=== PATIENT | female | born 1995 | race Caucasian/White ===

== ENCOUNTER 2021-04-16 06:00 | Inpatient (IN) | payer BC, OTHER ==
[2021-04-16] MEDS ORDERED: OXYTOCIN 10 UNIT/ML 1 ML VIAL IM PRN (06:25)
[2021-04-16] MEDS ORDERED: TERBUTALINE 1 MG/ML VIAL SQ PRN (06:25)
[2021-04-16] MEDS ORDERED: METHYLERGONOVINE 0.2 MG/ML 1 ML AMP IM PRN (06:25)
[2021-04-16] MEDS ORDERED: CARBOPROST TROMETHAMINE 250 MCG/ML 1 ML AMP IM PRN (06:25)
[2021-04-16] MEDS ORDERED: LIDOCAINE 0.5% (PF) 5 MG/ML (50 ML SDV) SQ PRN (06:25)
[2021-04-16] MEDS ORDERED: OXYTOCIN 30 UNITS/500 ML NS 30 UNIT in SALINE 1 500ML.BAG IV SCH ×2 (06:30→20:00)
[2021-04-16] MEDS: LACTATED RINGERS 1,000 ML IV SCH ×2 (06:50→13:09)
[2021-04-16 07:15] LABS: Basophils % (A) 0 %; Eosinophils # (A) 0.1 k/uL (0-0.7); Eosinophils % (A) 1 %; HCT 34.9 % (34.0-46.0); HGB 12.3 gm/dL (11.4-16.0); Lymphocytes # (A) 2.2 k/uL (1.0-4.8); Lymphocytes % (A) 26 %; MCHC 35.3 g/dL (31.0-37.0); Mean Platelet Volume 10.2; Monocytes # (A) 0.5 k/uL (0-1.0); Monocytes % (A) 5 %; Neutrophils # (A) 5.4 k/uL (1.3-7.7); Neutrophils % (A) 65 %; Platelet Count 167 k/uL (150-450); RBC 3.96 m/uL (3.80-5.40); RDW 13.6 % (11.5-15.5); WBC 8.4 k/uL (3.8-10.6)
--- NOTE | 2021-04-16 10:52 | P.HPOB ---
History of Present Illness H&P Date: 04/16/21 Chief Complaint: IUP at 39 0/7 weeks The 25-year-old at 39 0/7 weeks that presents to labor and delivery for scheduled induction of labor. Patient was receiving routine care with myself which has been essentially uncomplicated. Patient did have a history of gestational hypertension with her prior , blood pressures have been good throughout this current . Patient notes good movement denies contractions or vaginal bleeding. Patient has known blood type of A+, rubella status immune, B surface antigen negative, HIV negative, RPR nonreactive, group beta strep cultures are negative. Review of Systems Constitutional: Denies chills, Denies fatigue, Denies fever Ears, nose, mouth and throat: Denies headache Cardiovascular: Reports leg edema Respiratory: Denies dyspnea Gastrointestinal: Denies constipation, Denies diarrhea, Denies nausea, Denies vomiting Genitourinary: Reports Past Medical History History of Any Multi-Drug Resistant Organisms: None Reported Additional Past Surgical History / Comment(s): Joint replaced in R foot Past Anesthesia/Blood Transfusion Reactions: No Reported Reaction Past Psychological History: Anxiety Smoking Status: Never smoker Past Alcohol Use History: None Reported Past Drug Use History: None Reported - Past Family History Mother Family Medical History: Hypertension Father Family Medical History: No Reported History Medications and Allergies Home Medications Medication Instructions Recorded Confirmed Type Pnv No.95/Ferrous Fum/Folic AC 1 tab PO DAILY 03/22/21 04/16/21 History [ Multivitamin Tablet] Loratadine [Claritin] 1 tab PO DAILY 04/16/21 04/16/21 History Allergies Allergy/AdvReac Type Severity Reaction Status Date / Time ibuprofen Allergy Anaphylaxis Verified 04/16/21 06:24 Exam Osteopathic Statement: *. No significant issues noted on an osteopathic structural exam other than those noted in the History and Physical/Consult. 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 On cervical exam she is 1-2/50/-2 station amniotomy is performed and clear fluid was obtained. Results Result Diagrams: 04/16/21 06:45 Assessment and Plan (1) 39 weeks gestation of Current Visit: Yes Status: Acute Code(s): Z3A.39 - 39 WEEKS GESTATION OF SNOMED Code(s): 25122177 Plan: This is a 25-year-old at 39-0/7 weeks that presents to labor and delivery for scheduled induction of labor. Patient was admitted to labor and delivery Pitocin induction of labor secondary to protocol. Options for analgesia are discussed with patient including Stadol and epidural. She will consider. Anticipate spontaneous vaginal delivery later today.
[2021-04-16] MEDS ORDERED: BUTORPHANOL 1 MG/ML 1 ML VIAL IV PRN (14:54)
[2021-04-16] MEDS ORDERED: SODIUM CHLORIDE 0.9% 100 ML BAG ONE (17:50)
[2021-04-16] MEDS ORDERED: fentaNYL (PF) 50 MCG/ML 5 ML AMP ONE (17:50)
[2021-04-16] MEDS ORDERED: ROPIVACAINE 5MG/ML 20ML VIAL ONE (17:50)
[2021-04-16] MEDS ORDERED: diphenhydrAMINE 50 MG/ML 1 ML VIAL IVP PRN ×2 (19:51)
[2021-04-16] MEDS ORDERED: BENZOCAINE/MENTHOL SPRAY 1 GM/SPRAY AEROSOL TOPICAL PRN (19:51)
[2021-04-16] MEDS ORDERED: HYDROCORTISONE 2.5% RECTAL CREAM 30 GM TUBE RECTAL PRN (19:51)
[2021-04-16] MEDS ORDERED: LANOLIN CREAM 5 GM TUBE TOPICAL PRN (19:51)
[2021-04-16] MEDS ORDERED: diphenhydrAMINE 50 MG CAP PO PRN (19:51)
[2021-04-16] MEDS ORDERED: SIMETHICONE 80 MG CHEWABLE PO PRN (19:51)
[2021-04-16] MEDS ORDERED: ZOLPIDEM 5 MG TAB PO PRN (19:51)
[2021-04-16] MEDS ORDERED: diphenhydrAMINE 25 MG CAP PO PRN (19:51)
--- NOTE | 2021-04-16 19:56 | P.PROBDLV ---
Vaginal Delivery Note - . Vaginal Delivery Note: This is a 25-year-old 2 para 1001 that presented to labor and delivery today at 39 0/7 weeks, estimated due date of 04/23. Patient was admitted to labor and delivery and Pitocin induction of labor was begun per hospital protocol. Once regular contractions were appreciated amniotomy was performed. Patient progressed slowly throughout the day and requesting Stadol 1. Patient did become uncomfortable and requested epidural placement. Epidural was placed without difficulty by the anesthesia department. Patient progressed quickly to complete began pushing and had a normal spontaneous vaginal delivery of viable male at 1932, weight of 6 lbs. 14 oz. At delivery there was a loose nuchal 2 that was reduced at the perineum. After two-minute delay the umbilical cord was doubly clamped and cut and the was handed to the maternal abdomen. The placenta was then delivered spontaneously intact with three-vessel cord being noted. On inspection the patient's vaginal vault a first-degree vaginal laceration was appreciated. The laceration was instilled with lidocaine and repaired in usual fashion with 3-0 Rapide. The uterus is noted to be firm and below the umbilicus. The bladder was drained for approximately 100 mL of clear yellow urine. Estimated blood loss 300 mL. Patient and infant tolerated delivery well and are resting comfortably. All counts were noted be correct 2 at the end of the delivery.
[2021-04-16 20:41] VITALS: RESP 16
[2021-04-16] MEDS: SENNOSIDES-DOCUSATE SODIUM 1 EACH TAB PO SCH (22:10)
[2021-04-17] MEDS: ACETAMINOPHEN TAB 325 MG TAB PO PRN ×5 (00:15→23:19)
[2021-04-17] MEDS: PRENATAL VIT-IRON-FOLIC ACID 1 EACH CAP PO SCH (08:29)
[2021-04-17] MEDS: SENNOSIDES-DOCUSATE SODIUM 1 EACH TAB PO SCH ×2 (08:29→19:47)
--- NOTE | 2021-04-17 11:07 | P.PNOBGVD ---
Subjective - Subjective Principal diagnosis: PPD 1 Interval history: Patient is doing well, she is ambulating and voiding without difficulty. Lochia is minimal. Breast-feeding/pumping without difficulty. Pain is well-controlled. She is without complaints this morning. Patient reports: Reports appetite normal, Reports voiding normally, Reports pain well controlled, Reports ambulating normally [place]: doing well (in the nursery on oxygen therapy) Objective - Latest Vital Signs Latest vital signs: Vital Signs Temp Pulse Resp BP 04/17/21 07:46 97.6 F 70 16 127/76 04/17/21 04:00 97.9 F 92 16 121/73 04/16/21 23:40 97.7 F 100 16 130/69 04/16/21 21:50 97.8 F 97 16 133/70 04/16/21 21:20 98 16 122/58 04/16/21 20:50 100 16 123/58 04/16/21 20:35 99 16 121/63 04/16/21 20:20 100 16 128/80 04/16/21 20:05 99 16 127/65 04/16/21 19:50 97.2 F L 94 16 127/73 Intake and Output 04/16/21 04/17/21 04/17/21 22:59 06:59 14:59 Intake Total 167 Balance 167 Intake: Intake, IV Titration 167 Amount Oxytocin 30 Units/500 ml 167 Ns 30 unit In Saline 1 500ml.bag @ Per Protocol IV .Q0M [facility] Rx#:[id number] Other: # Voids 1 1 - Exam Extremities: Present: normal, edema Abdomen: Present: normal appearance Uterus: Present: normal, firm Assessment and Plan (1) 39 weeks gestation of Current Visit: Yes Status: Acute Code(s): Z3A.39 - 39 WEEKS GESTATION OF SNOMED Code(s): 69194558 (2) Status post vaginal delivery Current Visit: Yes Status: Acute Code(s): NEX2132 - SNOMED Code(s): 137823250 (3) Obstetric vaginal laceration with first degree perineal laceration Current Visit: Yes Status: Acute Code(s): O70.0 - FIRST DEGREE PERINEAL LACERATION DURING DELIVERY SNOMED Code(s): 073915473 Plan: Patient is status post normal spontaneous vaginal delivery. Patient is doing well. We'll plan to continue routine care and anticipate discharge home tomorrow. remains in the nursery on oxygen therapy, doing well
[2021-04-18] MEDS: ACETAMINOPHEN TAB 325 MG TAB PO PRN (05:39)
[2021-04-18] MEDS: SENNOSIDES-DOCUSATE SODIUM 1 EACH TAB PO SCH (08:01)
[2021-04-18] MEDS: PRENATAL VIT-IRON-FOLIC ACID 1 EACH CAP PO SCH (09:03)
[2021-04-18 09:08] VITALS: TEMP 97.8
--- NOTE | 2021-04-18 10:05 | P.DS ---
Providers Date of admission: 04/16/21 06:05 Expected date of discharge: 04/18/21 Attending physician: Yolie Neal Primary care physician: Stated None - Discharge Diagnosis(es) (1) 39 weeks gestation of Current Visit: Yes Status: Acute (2) Status post vaginal delivery Current Visit: Yes Status: Acute (3) Obstetric vaginal laceration with first degree perineal laceration Current Visit: Yes Status: Acute Hospital Course: This is a 25-year-old that presented to labor and delivery at 39 0/7 weeks for scheduled induction of labor on 04/16. Patient was admitted to labor and delivery and Pitocin induction of labor was begun. Patient underwent amniotomy and clear fluid was obtained. Patient eventually became uncomfortable and requested epidural placement. Epidural was placed without difficulty by the anesthesia . Patient progressed to complete began pushing and had a normal spontaneous vaginal delivery of a viable male at 1932, weight of 6 lbs. 14 oz. Patient did sustain a first 3 vaginal laceration which was repaired in usual fashion with 3-0 Rapide. Patient's course has been uneventful. On this day #2 she is ambulatory and voiding without difficulty. She is tolerating a regular diet without nausea or vomiting. She states she is feeling well. remains in the nursery. He is weaning off of oxygen therapy. Patient will be discharged home later today. Patient Condition at Discharge: Good Plan - Discharge Summary New Discharge Prescriptions: No Action Pnv No.95/Ferrous Fum/Folic AC [ Multivitamin Tablet] 1 tab PO DAILY Loratadine [Claritin] 1 tab PO DAILY Discharge Medication List Pnv No.95/Ferrous Fum/Folic AC [ Multivitamin Tablet] 1 tab PO DAILY 03/22/21 [History] Loratadine [Claritin] 1 tab PO DAILY 04/16/21 [History] Follow up Appointment(s)/Referral(s): Yolie Neal DO [Doctor of Osteopathic Medicine] - 2 Weeks Patient Instructions/Handouts: Vaginal Delivery (DC), Vaginal Delivery (GEN) Discharge Disposition: HOME SELF-CARE
[2021-04-18 15:20] VITALS: BP 125/70; PULSE 72
== END 2021-04-18 18:06 | disposition home or self-care (01) | DRG 807 ==
LOC: 4FBP 06:05
PROVIDERS: ADMIT Obstetrics & Gynecology Obstetrics; ATTEND Obstetrics & Gynecology Obstetrics
PROC: 10E0XZZ Delivery of Products of Conception, External Approach (ICD-10-PCS; principal; 2021-04-16)
PROC: 0HQ9XZZ Repair Perineum Skin, External Approach (ICD-10-PCS; 2021-04-16)
PROC: 3E033VJ Introduction of Other Hormone into Peripheral Vein, Percutaneous Approach (ICD-10-PCS; 2021-04-16)
DX: O69.81X0 Labor and delivery complicated by cord around neck, without compression, not applicable or unspecified (principal); Z37.0 Single live birth; O70.0 First degree perineal laceration during delivery; Z3A.39 39 weeks gestation of pregnancy; Z88.8 Allergy status to other drugs, medicaments and biological substances; Z82.49 Family history of ischemic heart disease and other diseases of the circulatory system
CPT/HCPCS: 85025; 86850; 86900; 86901